=== PATIENT | male | born 1950 | race Caucasian/White ===

== ENCOUNTER → 2020-12-25 | Outpatient (CLI) | payer MEDICARE ==
[2020-12-25 13:39] LABS: HCT 41.4 % (39.0-53.0); HGB 14.1 gm/dL (13.0-17.5); MCH 28.3 pg (25.0-35.0); MCHC 34.1 g/dL (31.0-37.0); MCV 82.9 fL (80.0-100.0); Mean Platelet Volume 8.7; Platelet Count 196 k/uL (150-450); RBC 4.99 m/uL (4.30-5.90); RDW 13.6 % (11.5-15.5); WBC 6.8 k/uL (3.8-10.6)
[2020-12-25 13:49] LABS: ALT 22 U/L (4-49); AST 22 U/L (17-59); African American GFR (CKD) >90 (>60 ml/min/1.73 sqM); Albumin 4.2 g/dL (3.5-5.0); Alkaline Phosphatase 53 U/L (38-126); Anion Gap 6 mmol/L; Blood Urea Nitrogen 26 mg/dL (9-20); Calcium 9.4 mg/dL (8.4-10.2); Carbon Dioxide 28 mmol/L (22-30); Chloride 105 mmol/L (98-107); Glucose 175 mg/dL (74-99); Non-African American GFR(CKD) 82 (>60 ml/min/1.73 sqM); Potassium 4.7 mmol/L (3.5-5.1); Sodium 139 mmol/L (137-145); Total Bilirubin 0.5 mg/dL (0.2-1.3); Total Protein 6.5 g/dL (6.3-8.2)
[2020-12-25 13:51] LABS: INR 0.9 (<1.2); Partial Thromboplastin Time 22.8 sec (22.0-30.0); Prothrombin Time 10.1 sec (9.0-12.0)
[2020-12-25 14:36] LABS: Appearance,Urine Clear (Clear); Bilirubin,Urine Negative (Negative); Blood,Urine Negative (Negative); Color,Urine Yellow; Glucose,Urine (UA) Negative (Negative); Ketones,Urine Trace (Negative); Leukocyte Esterase,Urine Trace (Negative); Mucus,Urine Occasional /hpf; Nitrite,Urine Negative (Negative); PH, Urine 5.5 (5.0-8.0); Protein,Urine Trace (Negative); RBC,Urine 1 /hpf (0-5); Specific Gravity,Urine 1.028 (1.001-1.035); Squamous Epithelial Cell,Urine 3 /hpf (0-4); Urobilinogen,Urine <2.0 mg/dL (<2.0); WBC,Urine 1 /hpf (0-5)
== END | disposition home or self-care (01) ==
LOC: LABPAT 12:21
PROVIDERS: ATTEND Orthopaedic Surgery
DX: Z01.812 Encounter for preprocedural laboratory examination (principal); M17.11 Unilateral primary osteoarthritis, right knee
CPT/HCPCS: 80053; 81001; 85027; 85610; 85730; 87070

== ENCOUNTER 2021-01-20 12:44 | Day surgery (SDC) | payer MEDICARE ==
[2021-01-15 09:45] VITALS: BMI 39.5
[~2021-01-20 12:44] MED LIST: ACETAMINOPHEN TAB 500 MG TAB PO PRN; GABAPENTIN 300 MG CAP PO PRN; LIDOCAINE 1% (10MG/ML) FOR IV START INTRADERMA PRN; MELOXICAM 7.5 MG TAB PO PRN; ROPIVACAINE/EPI/CLONIDINE/KET 50 ML SYRINGE MISCELLANE PRN; TRANEXAMIC ACID 1,000 MG in SODIUM CHLORIDE 0.9% 100 ML IVPB PRN
[2021-01-20] MEDS: LACTATED RINGERS 1,000 ML IV SCH ×2 (13:25→14:57)
[2021-01-20 13:37] LABS: Glucose,Whole Blood 135 mg/dL (75-99)
[2021-01-20] MEDS: ONDANSETRON 4 MG/2 ML VIAL IVP ONE (13:51)
[2021-01-20] MEDS ORDERED: fentaNYL (PF) 50 MCG/ML 2 ML AMP IVP ONE (13:54)
[2021-01-20] MEDS ORDERED: MIDAZOLAM 2 MG/2 ML VIAL IVP ONE (13:54)
[2021-01-20] MEDS ORDERED: ONDANSETRON 4 MG/2 ML VIAL IVP PRN (14:39)
[2021-01-20] MEDS ORDERED: HYDROmorphone 0.2 MG/1 ML SYRINGE IVP PRN (14:39)
[2021-01-20] MEDS ORDERED: HYDROmorphone 0.5 MG/0.5 ML SYRINGE IVP PRN ×2 (14:39)
[2021-01-20] MEDS ORDERED: NALOXONE 0.4 MG/ML 1 ML VIAL IV PRN (14:39)
[2021-01-20] MEDS ORDERED: HYDROcodone/APAP 7.5-325MG 1 EACH TAB PO PRN (14:40)
[2021-01-20] MEDS ORDERED: LIDOCAINE 1% INJ 10MG/ML (20 ML MDV) ONE (15:03)
[2021-01-20] MEDS ORDERED: SODIUM CHLORIDE 0.9% 100 ML BAG ONE (15:03)
[2021-01-20] MEDS ORDERED: ROCURONIUM 10 MG/ML (5 ML VIAL) IV ONE (15:03)
[2021-01-20] MEDS ORDERED: MIDAZOLAM 2 MG/2 ML VIAL ONE (15:03)
[2021-01-20] MEDS ORDERED: SUCCINYLCHOLINE CHLORIDE 100 MG/5 ML SYR IV ONE (15:03)
[2021-01-20] MEDS ORDERED: ROPIVACAINE 5 MG/ML 30 ML VIAL ONE (15:03)
[2021-01-20] MEDS ORDERED: fentaNYL (PF) 50 MCG/ML 2 ML AMP ONE (15:03)
[2021-01-20] MEDS ORDERED: GLYCOPYRROLATE 0.2 MG/ML 2 ML VIAL ONE (15:03)
[2021-01-20] MEDS ORDERED: PROPOFOL 10 MG/ML 20 ML VIAL IV ONE (15:03)
[2021-01-20] MEDS ORDERED: NEOSTIGMINE 1 MG/ML 10 ML VIAL ONE (15:03)
[2021-01-20] MEDS ORDERED: TRANEXAMIC ACID 1,000 MG/10 ML VIAL ONE (15:03)
[2021-01-20] MEDS ORDERED: HYDROmorphone (PF) 1 MG/ML ONE (15:03)
--- NOTE | 2021-01-20 15:31 | P.ANPRN ---
Procedure Note - Anesthesia - Nerve Block Performed Right Adductor Canal Time Out Performed: Yes (13:53) Date of Procedure: 01/20/21 Procedure Start Time: :53 Procedure Stop Time: 14:06 Location of Patient: PreOp Indication: Acute Post-Operative Pain, Requested by Surgeon (Dr Dae Avila) Sedation Type: Sedate with meaningful contact maintained Preparation: Sterile Prep, Sterile Dressing Position: Supine Catheter: Indwelling Needle Types: Pajunk Needle Gauge: 21 Ultrasound used to visualize needle placement: Yes Ultrasound used to observe medication spread: Yes Injectate: 0.5% Ropivacaine (see comment for volume) (15cc) Blood Aspirated: No Pain Paresthesia on Injection Noted: No Resistance on Injection: Normal Image Stored and Saved: Yes Events: Uneventful and Well Tolerated
--- NOTE | 2021-01-20 15:34 | P.ANPRN ---
Procedure Note - Anesthesia - Nerve Block Performed Right iPack Time Out Performed: Yes (14:07) Date of Procedure: 01/20/21 Procedure Start Time: : Procedure Stop Time: : Location of Patient: PreOp Indication: Acute Post-Operative Pain, Requested by Surgeon (Dr Dae Avila) Sedation Type: Sedate with meaningful contact maintained Preparation: Sterile Prep Position: Supine Catheter: None Needle Types: Pajunk Needle Gauge: 21 Ultrasound used to visualize needle placement: Yes Ultrasound used to observe medication spread: Yes Injectate: 0.5% Ropivacaine (see comment for volume) (15cc + 5cc PFNormal saline) Blood Aspirated: No Pain Paresthesia on Injection Noted: No Resistance on Injection: Normal Image Stored and Saved: Yes Events: Uneventful and Well Tolerated
--- NOTE | 2021-01-20 17:10 | P.OP ---
Date of Procedure: 01/20/21 Preoperative Diagnosis: Failed unicompartmental knee replacement right knee Postoperative Diagnosis: Failed unicompartmental knee replacement right knee Procedure(s) Performed: Revision right total knee arthroplasty Implants: Vale and Nephew Legion Oxinium constrained femoral component size 6, right Vale & Nephew legion revision tibial baseplate size 6, right Vale & Nephew tibial wedge size 5-6, 10 mm Vale [employer] Nephew Legion press-fit stem, straight 12 mm x 80 mm Vale & Nephew Brea II constrained articular insert size 5-6, 11 mm All components were cemented using Palacos R bone cement.. The articulation is Oxinium on polyethylene. Anesthesia: GETA Surgeon: Dae Avila Shovel Oiler #1: Jaja Segal Estimated Blood Loss (ml): 50 Pathology: none sent Condition: stable Disposition: PACU Indications for Procedure: This is a 70-year-old gentleman that presented to me with pain in his right knee. He's had a prior unicompartmental knee replacement of his right knee approximately 20 years ago. X-rays demonstrate loosening of the tibial component failure of the unicompartmental knee replacement. After discussing the surgical and nonsurgical treatment options at length, he has decided to proceed with a revision of his right total knee arthroplasty, informed consent was obtained. Operative Findings: The operative findings are consistent with a failed right medial unicompart mental knee replacement loosening of the tibial component. Description of Procedure: Patient was seen in the preoperative area and the consent was reviewed and the operative site was marked with a skin marker. The patient verified the procedure and the operative site. An adductor canal pain catheter as well as an iPACK block was placed by anesthesia in the preoperative area. The patient was then brought to the operating room and given preoperative antibiotics intravenously. A gram of transexamic acid was given intravenously. A general anesthetic was administered by the anesthesia department. A tourniquet was placed on the upper thigh and the lower extremity was prepped with chlorhexidine and draped in usual sterile fashion. A universal timeout was then performed which confirmed the patient's name, surgical site, ALLERGIES, and consent. The lower extremity was then exsanguinated and tourniquet was inflated to 250 mmHg. A standard anterior midline approach to the knee was performed. Prior incision was excised. The skin and subcutaneous tissue were sharply dissected down to the patellar tendon. A medial parapatellar arthrotomy was then per formed. The knee was then extended, the patellar was everted, and the knee was again flexed. The infra-patellar fat pad was removed in order to enhance exposure. The anterior horns of both menisci were excised, and a release was performed to the posterior medial aspect of the knee. On gross visual inspection, there was gross loosening of the tibial component of the medial unicompartmental knee replacement, as well as significant subsidence into the tibia. The femoral canal was then opened with the 9.5 mm intramedullary drill. The 8 mm intramedullary raul was then inserted into the femoral canal with the distal femoral cutting guide set for 5 of valgus. The distal femoral cutting block was then pinned in place. The intramedullary raul was then removed, and the distal femur was then cut. In order to remove all of the bone from the medial aspect of the distal femur, the medial femoral component was removed with an osteotome and a mallet without significant bone loss. The cutting block was then removed and the cut was checked for symmetry. The resected bone was then measured to confirm the appropriate distal femoral resection. Next, the sizing guide was then placed and set for 3 external rotation based off of the epicondylar axis and Whitesides line. Pins were then placed and the drill holes, and the femur was sized with the sizing stylus. The pins were then removed, and the sizing guide was then removed. The spikes of the femoral block was then placed into the predrilled holes, and malleted into place. Two 45 mm pins were then placed into the fixation holes on the cutting block. An jose roberto wing was then used to ensure there would be no notching with the anterior cut. The anterior condyles were cut without notching. The anterior chord cut was then performed, followed by the posterior cut, posterior chamfer cut, and the anterior chamfer cut. The collateral ligaments were protected during the entire process. The cutting block was then removed. Any remaining bone and osteophytes were removed from the femur with a Rominger. Attention was then directed to the tibia. The remaining ACL was removed with a Ronguer, and the tibia was then gently subluxed forward with a large bent knee retractor. Any remaining menisci were excised. The posterior lateral corner was cauterized in order to coagulate the lateral geniculate artery. The tibial component was then easily removed by hand Vale and get loosening. There is found to be significant bone loss of the medial aspect of the proximal tibia. The intra-medullary tibial cutting guide was then placed, set for the appropriate rotation, slope, and depth of resection. The proximal tibia cutting guide was then pinned in place. Proximal tibia was then cut and sized. The tibial trial was then placed and the guide for the medial wedge was then placed. Using the guide, 10 mm was then resected medially for a 10 mm wedge. The femoral trial was placed. The box cutting osteotome was then used to ream out the anterior condylar bone. These constrained notch trial was then placed. The tibial trial was placed with the appropriate-sized insert. The knee was able to fully extend and flex to 130 and was stable throughout all range of motion. The knee was then extended and the patella was everted. Patella was then measured, and then using an osteotomy guide, the patella was cut at the appro priate level. The patella was then measured and drilled and the patella trial was then placed. The knee was then taken through range of motion with the patella trial and the patella tracked normally using the no thumbs technique.. The knee was then extended patella trial was then removed and the patella was everted. Knee was then flexed and lug holes were drilled through the femoral trial and the femoral trial was then removed. The tibial was then re-exposed, and the tibial broach guide was then pinned in place after it was set for the appropriate rotation to allow for the most coverage without overhang. The tibia was then reamed and broached. The cut surfaces of bone were then irrigated with pulsatile lavage. The knee was also irrigated with Irrisept solution. The components were then opened, the cement was mixed, and the components were then cemented in place. The cement was allowed to harden with the knee in full extension. After the cemented hardened. The tourniquet was released, and hemostasis was obtained. A second gram of transexamic acid was given intravenously. The knee was again irrigated. The knee was again taken through range of motion and found to be stable throughout all range of motion of 0-130, and the patella tracked normally. The fascia was then closed with 0 Vicryl followed by #2 strata fix suture. The subcutaneous tissue was closed with 3-0 Vicryl and 3-0 strata fix. Exofin glue was used for the skin and placed with the knee in flexion. After the glue had dried, and Optafoam silver impregnated dressing was applied. The patient was then transferred to recovery room in stable condition. The endodontic assistant DU Gutierrez was required due the complexity surgery and the need for a skilled staff physical therapy assistant. She assisted in positioning, draping, retraction, and closure of the wound.
[2021-01-20] MEDS: HYDROmorphone 0.5 MG/0.5 ML SYRINGE IVP PRN ×4 (17:35→18:10)
[2021-01-20] MEDS ORDERED: ROPIVACAINE 0.2%-NS ON-Q PUMP 2 MG/ML EACH MISCELLANE ONE (17:52)
--- NOTE | 2021-01-20 18:07 | XR ---
EXAMINATION TYPE: XR knee limited RT DATE OF EXAM: 01/20/2021 COMPARISON: NONE HISTORY: Knee surgery TECHNIQUE: 2 views FINDINGS: There is right knee prosthesis. Components are in anatomic position. There is No evidence of a fracture. IMPRESSION: No complicating process seen.
[2021-01-20 18:52] LABS: Glucose,Whole Blood 193 mg/dL (75-99)
[2021-01-20] MEDS: SODIUM CHLORIDE 0.9% 1,000 ML IV SCH (19:45)
[2021-01-20] MEDS: ASPIRIN 325 MG TAB PO SCH (22:28)
[2021-01-21] MEDS: HYDROcodone/APAP 7.5-325MG 1 EACH TAB PO PRN ×2 (00:02→05:19)
[2021-01-21 02:34] VITALS: RESP 18
[2021-01-21] MEDS: SODIUM CHLORIDE 0.9% 1,000 ML IV SCH (05:22)
[2021-01-21] MEDS: ONDANSETRON 4 MG/2 ML VIAL IVP ONE (06:47)
[2021-01-21 07:48] VITALS: BP 116/75; PULSE 88; TEMP 99.1
[2021-01-21] MEDS: ASPIRIN 325 MG TAB PO SCH (07:55)
--- NOTE | 2021-01-21 09:26 | P.DS ---
Providers Expected date of discharge: 01/21/21 Attending physician: Dae Avila Consults: 01/20/21 17:29 Consult Physician Routine Consulting Provider: Murtaza Hancock Consult Reason/Comments: medical management Do you want consulting provider notified?: Yes Primary care physician: Murtaza Hancock - Discharge Diagnosis(es) (1) S/P revision of total knee Current Visit: Yes Status: Acute Hospital Course: This is a 70-year-old male with known history of right unicompartmental knee replacement. The patient presented for evaluation as an outpatient and x-rays demonstrated loosening of the tibial component. After discussion and consideration patient elects to proceed with revision right total knee art hroplasty. The patient is seen preoperatively by Dr. Avila and medically cleared for surgery by their primary care physician. Patient is admitted to [facility] on 01/20/2021 for revision right total knee arthroplasty. The procedure is performed without complication or sequelae. The patient is doing well postoperatively. Labs and vital signs are stable on day of discharge. On day of discharge patient's knee incision is healing well. There is minimal erythema. There is no drainage noted at this time. There is minimal soft tissue swelling to the knee. Patient has full foot and ankle motion without difficulty or pain. Calf is soft and nontender to palpation. Neurovascular status to the right lower extremity is intact. Patient is discharged home in good condition. Please see med rec for accurate list of home medications. Plan - Discharge Summary Discharge Rx Participant: No New Discharge Prescriptions: New Aspirin 325 mg PO BID #60 tab Ondansetron Odt [Zofran Odt] 1 tab PO Q8HR PRN #10 tab PRN Reason: Nausea HYDROcodone/APAP 7.5-325MG [Reeders 7.5-325] 1 - 2 tab PO Q6H PRN #32 tab PRN Reason: Pain Sennosides [Senokot] 2 tab PO DAILY PRN #60 tablet PRN Reason: Constipation No Action Glimepiride [Amaryl] 2 mg PO AC-BRKFST Pravastatin Sodium [Pravachol] 20 mg PO DAILY metFORMIN HCL [Glucophage] 500 mg PO QAM Nystatin 100,000Unit/gm Cream [Mycostatin Cream] 1 applic TOPICAL DIRECTED PRN PRN Reason: Rash Ibuprofen [Motrin] 800 mg PO QID PRN PRN Reason: Pain Hydrocortisone Cream [Hydrocortisone 2.5% Cream] 1 applic TOPICAL DIRECTED PRN PRN Reason: Rash HYDROcodone/APAP 10-325MG [Reeders 10-325] 1 tab PO DAILY PRN PRN Reason: Pain FLUoxetine HCL [PROzac] 20 mg PO DAILY Aspirin [Adult Low Dose Aspirin EC] 81 mg PO DAILY Vit C/E/Zn/Coppr/Lutein/Zeaxan [Preservision Areds 2 Softgel] 1 each PO DAILY lisinopriL [Zestril] 20 mg PO DAILY Ergocalciferol [Vitamin D2 (1250 Mcg = 68889 Iu)] 50,000 unit PO Q14D Discharge Medication List Aspirin [Adult Low Dose Aspirin EC] 81 mg PO DAILY 01/15/21 [History] Ergocalciferol [Vitamin D2 (1250 Mcg = 18856 Iu)] 50,000 unit PO Q14D 01/15/21 [History] FLUoxetine HCL [PROzac] 20 mg PO DAILY 01/15/21 [History] Glimepiride [Amaryl] 2 mg PO AC-BRKFST 01/15/21 [History] HYDROcodone/APAP 10-325MG [Reeders 10-325] 1 tab PO DAILY PRN 01/15/21 [History] Hydrocortisone Cream [Hydrocortisone 2.5% Cream] 1 applic TOPICAL DIRECTED PRN 01/15/21 [History] Ibuprofen [Motrin] 800 mg PO QID PRN 01/15/21 [History] Nystatin 100,000Unit/gm Cream [Mycostatin Cream] 1 applic TOPICAL DIRECTED PRN 01/15/21 [History] Pravastatin Sodium [Pravachol] 20 mg PO DAILY 01/15/21 [History] Vit C/E/Zn/Coppr/Lutein/Zeaxan [Preservision Areds 2 Softgel] 1 each PO DAILY 01/15/21 [History] lisinopriL [Zestril] 20 mg PO DAILY 01/15/21 [History] metFORMIN HCL [Glucophage] 500 mg PO QAM 01/15/21 [History] Aspirin 325 mg PO BID #60 tab 01/20/21 [Rx] Ondansetron Odt [Zofran Odt] 1 tab PO Q8HR PRN #10 tab 01/20/21 [Rx] HYDROcodone/APAP 7.5-325MG [Reeders 7.5-325] 1 - 2 tab PO Q6H PRN #32 tab 01/21/21 [Rx] Sennosides [Senokot] 2 tab PO DAILY PRN #60 tablet 01/21/21 [Rx] Follow up Appointment(s)/Referral(s): Dae Avila DO [Doctor of Osteopathic Medicine] - 02/06/21 2:00 pm (YOUR GOING TO SEE DU MCNEAL) Ambulatory/Diagnostic Orders: Continuous Passive Motion (CPM) Machine [DME.AMB1] Time Frame: 3 Weeks, Location: None Selected Patient Instructions/Handouts: *Surgery [facility] - (Anesthesia) Discharge Instructions Outpatient Surgery, How to Use an Incentive Spirometer (DC), Revision Total Joint Arthroplasty (DC) Activity/Diet/Wound Care/Special Instructions: Weightbearing as tolerated with a walker. CPM 5-6h daily as tolerated. Leave dressing intact. Dressing may be removed by home care nurse or by patient in 7 days. Then change dressing twice daily until follow up. May shower with initial dressing intact and after removal. If dressing become saturated, please remove. Recommend use of compression stockings daily until follow up to help prevent swelling and blood clots. May remove at night before sleeping. Please take aspirin 325mg twice daily for 30 days to prevent blood clots. Please follow up with [facility] and call with any questions or concerns, . Discharge Disposition: HOME WITH HOME HEALTH SERVICES
[2021-01-21 11:20] LABS: Basophils # (A) 0.02 X 10*3/uL (0.00-0.10); Basophils % (A) 0.2 %; Eosinophils # (A) 0.02 X 10*3/uL (0.04-0.35); Eosinophils % (A) 0.2 %; HCT 32.8 % (39.6-50.0); HGB 10.7 g/dL (13.0-17.0); Lymphocytes # (A) 1.58 X 10*3/uL (0.90-5.00); Lymphocytes % (A) 18.5 %; MCH 27.4 pg (27.0-32.0); MCHC 32.6 g/dL (32.0-37.0); MCV 83.9 fL (80.0-97.0); Mean Platelet Volume 11.6 fL (9.5-12.2); Monocytes # (A) 0.88 X 10*3/uL (0.20-1.00); Monocytes % (A) 10.3 %; Neutrophils # (A) 6.02 X 10*3/uL (1.80-7.70); Neutrophils % (A) 70.4 %; Platelet Count 174 X 10*3/uL (140-440); RBC 3.91 X 10*6/uL (4.40-5.60); RDW 13.4 % (11.5-14.5); WBC 8.55 X 10*3/uL (4.50-10.00)
--- NOTE | 2021-01-22 15:49 | PN ---
PROGRESS NOTE DATE OF SERVICE: 01/20/2021 CHIEF COMPLAINT: Status post right TKA. HISTORY OF PRESENT ILLNESS: This gentleman is doing fairly well postoperatively and he is not having a significant amount of pain. He has had no chest pain, shortness of breath, chills, etc. PHYSICAL EXAMINATION: His chest is clear. The cardiac exam is normal. The abdomen is soft and protuberant. Knee is wrapped. IMPRESSION: 1. Status post right TKA for arthritis. 2. Hypertension. 3. Diabetes. PLAN: No change in his program. He is doing well. MMODL / IJN: [id number] /
--- NOTE | 2021-01-22 15:49 | PN ---
PROGRESS NOTE DATE OF SERVICE: 01/21/2021. CHIEF COMPLAINT: Status post right knee replacement. HISTORY OF PRESENT ILLNESS: This gentleman is doing well. His blood pressures are good as well as his vital signs and blood sugars, and he will probably go home today. PHYSICAL EXAM: His chest is clear and the cardiac exam is normal. Abdomen is soft, nontender. He is afebrile. He is doing well. IMPRESSION: 1. Status post right total knee replacement. 2. Hypertension. 3. Diabetes. PLAN: Probably home today. MMODL / IJN: [id number] /
--- NOTE | 2021-01-22 16:06 | CONS ---
CONSULTATION CHIEF COMPLAINT: Arthritis of the right knee. HISTORY OF PRESENT ILLNESS: This is another admission for this 70-year-old white male who is in for an elective right TKA. He has hypertension but has been well controlled. He is a compliant patient. He is very vigorous. REVIEW OF SYSTEMS: He has had no headaches, neurologic problems, change in the vision or the hearing, chest pain, orthopnea, PND, palpitations, cough, hemoptysis, abdominal pain, nausea, vomiting, hematemesis, melena, hematochezia, renal failure, hematuria, frequency, urgency, nocturia, incontinence, diabetes, etc. Past medical history, family history, and personal and social histories reveal that he is ALLERGIC to ZOCOR AND LEVAQUIN. He is on aspirin 81 mg a day, Vicodin p.r.n., ibuprofen 800 mg q.i.d. p.r.n., glimepiride 2 mg once a day, vitamin D 50,000 once a month, pravastatin 20 mg once a day, metformin 500 mg once a day, Prozac 20 mg once a day, and Zestril 20 mg once a day. He has never been a smoker and he does not drink. PHYSICAL EXAMINATION: Blood pressure is 136/73 with a pulse of 74, respirations of 10, and he is afebrile. In general he appeared to be overweight, but in no acute distress. Skin color is normal. Skin is warm and dry. Lymph nodes were not enlarged. Head, ears, eyes, nose, mouth and throat were normal. Neck veins are not distended. Thyroid was not enlarged. Chest is clear. Cardiac exam demonstrates normal sinus rhythm with no murmurs or extra sounds. The abdomen is soft and nontender and it is protuberant. Extremities are normal except for the right knee. Neurologically he is intact. He was admitted to the hospital with the diagnoses: 1. Arthritis of the right knee. 2. Hypertension. 3. Type 2 [id number] diabetes mellitus. RECOMMENDATIONS: None. He is cleared for surgery and presents an excellent risk. Thank you. Respectfully, Murtaza Hancock II, M.D. WINIFRED / ROXANNE: [id number] /
== END 2021-01-21 12:14 | disposition home health service (06) ==
LOC: OR 12:44 → 4SSUR 19:46 → OR 01-21 12:14
PROVIDERS: ATTEND Orthopaedic Surgery
DX: T84.092A Other mechanical complication of internal right knee prosthesis, initial encounter (principal); M17.11 Unilateral primary osteoarthritis, right knee; M79.89 Other specified soft tissue disorders; R11.0 Nausea; R21 Rash and other nonspecific skin eruption; Y79.2 Prosthetic and other implants, materials and accessory orthopedic devices associated with adverse incidents; Z79.84 Long term (current) use of oral hypoglycemic drugs; Z96.651 Presence of right artificial knee joint; I10 Essential (primary) hypertension; E78.5 Hyperlipidemia, unspecified; J45.909 Unspecified asthma, uncomplicated; E11.9 Type 2 diabetes mellitus without complications; M19.90 Unspecified osteoarthritis, unspecified site
CPT/HCPCS: 27486; 97161; 64999; 64448; 76942; 85025; 88300; 73560; C1713; C1776; J2250; J2710; J0690 ×2; J2405; J2001; J3010; J1170 ×2; J2795 ×2; J0330; J2704